=== PATIENT | female | born 1980 | race Two or more races ===

== ENCOUNTER 2019-08-05 08:28 | Emergency (ER) | payer OTHER ==
[2019-08-05 08:34] VITALS: BP 126/81
[2019-08-05] MEDS ORDERED: PENICILLIN V POTASSIUM 500 MG TABLET PO ONE (09:31)
[2019-08-05] MEDS ORDERED: HYDROCODONE/ACETAMINOPHEN 5-325 MG (6 TAB/ER DISP) PO PRN (09:32)
--- NOTE | 2019-08-05 09:33 | ER Document Report ---
HPI - HPI Patient complains to provider of: dental pain Time Seen by Provider: 08/05/19 09:19 Onset: Other - 3 days Quality of pain: Throbbing Context: 38-year-old healthy female presents to the emergency department with upper right-sided dental pain. Reports area started hurting on Thursday. She does not remember biting down or fracturing her tooth. She reports she woke up today with swelling on the right side. She reports taking ibuprofen for the pain without relief of symptoms. Denies fever vomiting diarrhea. She reports she has been able to secure an appointment with the dentist next week in [place]. Associated Symptoms: None Exacerbated by: Denies Relieved by: Denies Similar symptoms previously: No Recently seen / treated by doctor: No Past Medical History - General Information source: Patient Last Menstrual Period: 2 weeks ago - Social History Smoking Status: Current Every Day Smoker Cigarette use (# per day): Yes Frequency of alcohol use: Social Drug Abuse: None Occupation: [employer] Family History: None Patient has suicidal ideation: No Patient has homicidal ideation: No - Medical History Medical History: Negative Surgical Hx: Negative Vertical Provider Document - CONSTITUTIONAL Agree With Documented VS: Yes Exam Limitations: No Limitations General Appearance: WD/WN, No Apparent Distress - HEENT HEENT: Atraumatic, Normocephalic. negative: Conjuctival Injection, Pharyngeal Erythema Mouth Diagram: 1 - reports pain, opens her mouth wide clear voice, no erythema no pustule noted no Yovani's no trismus Notes: Some soft tissue facial swelling on the right side maxilla, no erythema no war mth - NECK Neck: Normal Inspection, Supple. negative: Lymphadenopathy-Left, Lymphadenopathy-Right - RESPIRATORY Respiratory: Breath Sounds Normal, No Respiratory Distress - CARDIOVASCULAR Cardiovascular: Regular Rate, Regular Rhythm - MUSCULOSKELETAL/EXTREMETIES Musculoskeletal/Extremeties: DANII PEDROZA - NEURO Level of Consciousness: Awake, Alert, Appropriate - DERM Integumentary: Warm, Dry Adult Front & Back Diagram: 1 - Some facial swelling no erythema no warmth Course - Vital Signs Vital signs: Temp Pulse Resp BP Pulse Ox 98.5 F 77 18 126/81 H 99 08/05/19 08:32 08/05/19 08:32 08/05/19 08:32 08/05/19 08:32 08/05/19 08:32 Discharge - Discharge Clinical Impression: Pain, dental Condition: Stable Disposition: HOME, SELF-CARE Instructions: Use of Nttb-Dqu-Nypxrar Ibuprofen ([facility]), Oral Narcotic Medication ([facility]), Penicillin V K ([facility]), Toothache ([facility]) Additional Instructions: *You have been evaluated for dental pain *Take medications as ivpmaiflyz-Opn-Vjk K antibiotics, ibuprofen as indicated and [place] for acute pain *Follow up with dentist as scheduled next week *Return to ED for worsening condition, changes, needs Monitor your blood pressure. Your blood pressure was elevated today. This may be because you were anxious, in pain or because you need medication. It is important to follow up with your primary care provider for full evaluation. Prescriptions: Penicillin V Potassium [Penicillin Vk 500 mg Tablet] 500 mg PO BID #20 tablet Forms: Elevated Blood Pressure, Smoking Cessation Education, Return to Work
== END 2019-08-05 09:41 | disposition home or self-care (01) ==
LOC: ER 08:28
DX: K08.89 Other specified disorders of teeth and supporting structures (principal); R22.0 Localized swelling, mass and lump, head; F17.210 Nicotine dependence, cigarettes, uncomplicated
CPT/HCPCS: 99282